=== PATIENT | female | born 1965 | race Two or more races ===

== ENCOUNTER → 2016-11-20 | Outpatient (CLI) | payer MEDICAID | LOC: FIMAGING 13:19 | DX: Z12.31 Encounter for screening mammogram for malignant neoplasm of breast (principal) | CPT/HCPCS: G0202 ==

== ENCOUNTER → 2016-11-30 | Outpatient (CLI) | payer MEDICAID | LOC: FIMAGING 13:36 | PROVIDERS: ATTEND Nurse Practitioner Women's Health | DX: Z12.39 Encounter for other screening for malignant neoplasm of breast (principal); N63 Unspecified lump in breast | CPT/HCPCS: G0206 ==

== ENCOUNTER 2017-02-28 06:35 | Day surgery (SDC) | payer MEDICAID ==
[2017-02-28] MEDS ORDERED: LIDOCAINE 1% 2 ML INJ ONE (06:42)
[2017-02-28] MEDS ORDERED: MIDAZOLAM 2 MG/2 ML VIAL IVP ONE (07:05)
--- NOTE | 2017-02-28 07:05 | PDANEPAE ---
ANE History of Present Illness h/o GI upset presents for EGD ANE Past Medical History - Cardiovascular History Hx Hypertension: No Hx Arrhythmias: No Hx Chest Pain: No Hx Coronary Artery / Peripheral Vascular Disease: No Hx CHF / Valvular Disease: No Hx Palpitations: No - Pulmonary History Hx COPD: No Hx Asthma/Reactive Airway Disease: No Hx Recent Upper Respiratory Infection: No Hx Oxygen in Use at Home: No Hx Sleep Apnea: No Sleep Apnea Screening Result - Last Documented: Negative - Neurologic History Hx Cerebrovascular Accident: No Hx Seizures: No Hx Dementia: No - Endocrine History Hx Diabetes: No - Renal History Hx Renal Disorders: No - Liver History Hx Hepatic Disorders: No - Neurological & Psychiatric Hx Hx Neurological and Psychiatric Disorders: No - Cancer History Hx Cancer: No - Congenital Disorder History Hx Congenital Disorders: No - GI History Hx Gastrointestinal Disorders: Yes Gastrointestinal History Comment: severe heartburn, occ "aching" pain in stomach. - Chronic Pain History Chronic Pain: No - Surgical History Prior Surgeries: liposuction of abd. Ramírez DODD Review of Systems - Exercise capacity METS (RN): 4 METS ANE Patient History - Allergies Allergies/Adverse Reactions: No Known Allergies Allergy (Unverified 02/22/17 15:00) - Home Medications Home medications: home medication list seen and reviewed Home Medications: NK [No Known Home Meds] 02/22/17 [Last Taken Unknown] - NPO status NPO Since - Liquids (Date): 02/27/17 NPO Since - Liquids (Time): 22:00 NPO Since - Solids (Date): 02/27/17 NPO Since - Solids (Time): 20:00 - Anes Hx Anes Hx: no prior problems - Smoking Hx Smoking Status: Current some day smoker ANE Labs/Vital Signs - Vital Signs Blood Pressure: 124/75 Heart Rate: 74 Respiratory Rate: 18 O2 Sat (%): 98 Height: 162.56 cm Weight: 63.503 kg ANE Physical Exam - Airway Neck exam: FROM Mallampati Score: Class 1 Mouth exam: normal dental/mouth exam - Pulmonary Pulmonary: no respiratory distress - Cardiovascular Cardiovascular: regular rate and rhythym - ASA Status ASA Status: II ANE Anesthesia Plan Anesthesia Plan: MAC
[2017-02-28] MEDS ORDERED: PROPOFOL 200 MG/20 ML VIAL ONE ×5 (07:22→07:59)
--- NOTE | 2017-02-28 07:34 | PDGENHP ---
History & Physical Chief Complaint: dysphagia, heartburn History of Present Illness: dysphagia and heartburn, not on PPI Pertinent Past, Social, Family History: none pertinent Relevant Physical Exam: NAD. RRR. resp clear
[2017-02-28] MEDS ORDERED: MIDAZOLAM 2 MG/2 ML VIAL ONE (07:49)
[2017-02-28] MEDS ORDERED: NALOXONE HCL 0.4 MG/ML INJ IVP PRN (08:42)
[2017-02-28] MEDS ORDERED: ONDANSETRON 4 MG/2 ML VIAL IVP PRN (08:42)
--- NOTE | 2017-02-28 08:42 | POSTANESTH ---
Post Anesthetic Evaluation Cardiovascular Status: Normal, Stable Respiratory Status: Normal, Stable Level of Consciousness/Mental Status: Can Participate in Eval Pain Control: Adequate, Prn Tx Ordered Nausea/Vomiting Control: Adequate, Prn Tx Ordered Complications Possibly Related to Anesthesia: None Noted
[2017-02-28 09:30] VITALS: RESP 23; TEMP 97.9
[2017-02-28 09:42] VITALS: BP 128/81; PULSE 69; O2SAT 98
--- NOTE | 2017-02-28 10:34 | GPN ---
[f rep st] PROCEDURE NOTE DATE OF PROCEDURE: 02/28/2017 PROCEDURE: Esophagogastroduodenoscopy with biopsy. INDICATION: Heartburn, dysphagia, epigastric abdominal pain. CONSENT: Informed consent was obtained from the patient after an explanation of risks, benefits, an d alternatives to the procedure. MEDICATIONS GIVEN: Propofol per anesthesia. DESCRIPTION OF EXAMINATION: After adequate sedation was achieved, the endoscope was advanced under direct vision through the oropharynx, esophagus, stomach, and as far as the 2nd portion of the duode nal. Retroflexion was performed in the stomach. ESTIMATED BLOOD LOSS: None. COMPLICATIONS: None. FINDINGS: 1. Esophagus: Multiple small white plaques were seen in the esophagus along with fairly mild esoph agitis extending to the mid esophagus with no significant erosions. Biopsies were obtained to rule out candidal esophagitis. There was no significant stricture or narrowing seen. Given the patient' s dysphagia is fairly minimal and intermittent along with the finding of esophagitis, no dilation wa s performed. 2. Stomach: Erythema was seen in the antrum, body, and fundus of the stomach which was mild and co nsistent with possible gastritis. Biopsies were obtained from the antrum, body, and fundus to asses s for H pylori or other sources of gastritis. The GE junction appeared normal. No ulcers or mucosa l lesions were seen. 3. Duodenum: The duodenum was normal in the bulb and 2nd portion. Random biopsies were obtained t o assess for celiac disease. IMPRESSION: Esophagitis, mild gastritis, status post biopsies in the esophagus, stomach, and duoden um. RECOMMENDATIONS: 1. Omeprazole 20 mg daily for 3 months is recommended for likely mild reflux esophagitis. 2. If dysphagia continues despite PPI therapy and biopsies are negative for Stephanie or other signif icant findings, then repeat endoscopy with dilation on PPI therapy could be performed. 3. Await biopsy results and treat as appropriate. 4. Followup with primary care provider. If further assistance is desired, please refer back for GI office consultation. 5. Regular diet. 6. Standard anti-reflux precautions are recommended including raising the head of the bed 4-6 inche s, avoiding meals within 2-3 hours of bedtime/lying flat, avoiding nicotine and alcohol. /[id number]/MODL
== END 2017-02-28 10:03 | disposition home or self-care (01) ==
LOC: FSGY 06:35
PROVIDERS: ATTEND Internal Medicine
PROC: 0DB68ZX Excision of Stomach, Via Natural or Artificial Opening Endoscopic, Diagnostic (ICD-10-PCS; principal; 2017-02-28 08:00)
PROC: 0DB98ZX Excision of Duodenum, Via Natural or Artificial Opening Endoscopic, Diagnostic (ICD-10-PCS; principal; 2017-02-28 08:00)
PROC: 0DB28ZX Excision of Middle Esophagus, Via Natural or Artificial Opening Endoscopic, Diagnostic (ICD-10-PCS; principal; 2017-02-28 08:00)
DX: K21.0 Gastro-esophageal reflux disease with esophagitis (principal); K29.70 Gastritis, unspecified, without bleeding
CPT/HCPCS: J2250; J2704

== ENCOUNTER → 2017-08-05 | Outpatient (CLI) | payer MEDICAID | LOC: FIMAGING 11:29 | PROVIDERS: ATTEND Nurse Practitioner Women's Health | DX: N63.0 Unspecified lump in unspecified breast (principal) ==